=== PATIENT | female | born 1970 | race Caucasian/White ===

== ENCOUNTER 2024-06-22 15:37 | Emergency (ER) | payer BC ==
[~2024-06-22] VITALS: Ht 172.7 cm; Wt 90.7 kg
[2024-06-22 15:53] VITALS: TEMP 97.4
[2024-06-22 16:25] VITALS: RESP 18
[2024-06-22] MEDS ORDERED: METFORMIN HCL500 MG PO (17:40)
[2024-06-22] MEDS ORDERED: LEVOFLOXACIN750 MG PO (17:40)
[2024-06-22 18:07] VITALS: PULSE 92
[2024-06-22 18:20] VITALS: BP 100/50; PULSE 92; RESP 16; O2SAT 98
== END 2024-06-22 18:20 | disposition home or self-care (01) ==
LOC: ER 15:50
DX: E11.621 Type 2 diabetes mellitus with foot ulcer (principal); L08.89 Other specified local infections of the skin and subcutaneous tissue; M79.662 Pain in left lower leg
CPT/HCPCS: 99283